=== PATIENT | male | born 1995 | race Caucasian/White ===

== ENCOUNTER 2017-08-05 17:58 | Emergency (ER) | payer MEDICAID, SELFPAY ==
--- NOTE | 2017-08-05 17:58 | DT_ITS ---
This patient was seen during an EMR downtime August 05, 2017 - August 12, 2017. This patient may have a combination of paper and electronic documentation or all paper documentation. All documentation is viewable within the e-chart portion of [employer] for each patient visit.
== END 2017-08-05 19:08 | disposition left against medical advice (07) ==
LOC: ED 08-07 14:31
PROVIDERS: Emergency Provider Emergency Medicine; Family Provider Pediatrics; PCP Pediatrics
DX: Z53.21 Procedure and treatment not carried out due to patient leaving prior to being seen by health care provider (principal)

== ENCOUNTER 2017-11-13 13:01 | Emergency (ER) | payer MEDICAID, SELFPAY ==
[2017-11-13 13:02] VITALS: BP 147/78; PULSE 86; RESP 16; TEMP 36.1; O2SAT 99; BMI 22.6
--- NOTE | 2017-11-13 13:21 | CT_ITS ---
STUDY: CT ABDOMEN AND PELVIS WITHOUT CONTRAST REASON FOR EXAM: Male, 22 years old. Left flank pain RADIATION DOSAGE (If Supplied By Facility): CTDIvol = ( 6.12 ) mGy, DLP = ( 285.76 ) mGycm TECHNIQUE: Transaxial images were obtained from the dome of the diaphragm to the symphysis pubis without oral contrast, and without intravenous contrast. Sagittal and coronal images were reconstructed. Individualized dose optimization techniques were used for this CT. COMPARISON: None. FINDINGS: Body wall soft tissues: No acute process. Osseous structures: No acute process. Inferior chest: No acute process. Hepatobiliary: Normal. Pancreas: No acute process. Spleen: Normal. Adrenal glands: Normal. Urogenital: Punctate nonobstructing calyceal calculus of the left renal superior pole. Series 2 image 35. Normal right kidney, collecting system and ureter. There is very slight ectasia of the left renal pelvis and ureter. There is a 3 mm calculus within the distal left ureter approximately 3 cm proximal to the UVJ. Normal urinary bladder, prostate and seminal vesicles. Pelvic floor and sidewalls and retroperitoneum: No mass or adenopathy. Vasculature: No acute process. Stomach: No acute process. Small bowel and mesentery: No acute process. Large bowel: No acute process. Free fluid or free air: None. CT/Abdomen/Pelvis without Cont IMPRESSION: Acute passage of 3 mm left urinary calculus, calculus within the distal left ureter about 3 cm proximal to the ureterovesical junction. Very minimal hydronephrosis and hydroureter. Electronically Signed: Roel Neri, at 14:07 EDT Tel , Service support ,
--- NOTE | 2017-11-13 13:26 | ED.DCSUM_ITS ---
- ER Visit Summary Date of Service: 11/13/17 Chief Complaint: Right flank pain History of Present Illness: The patient is a 22 M who goes to [facility]. He reports that he has right flank pain that began abruptly approximately 45 minutes ago. Sharp pains 10-10 severity. Is worsened by nothing relieved by nothing. He denies any nausea, vomiting, diarrhea. His last bowel was today. He had no melena or hematochezia. No dysuria frequency. No hematuria. He denies any recent trauma. No fall, MVA, or change in activity. There is no relation to his legs. Physical Examination: Vitals: Stable. Afebrile. General: Well-nourished and well-developed. Head: Normocephalic atraumatic. Neck: Supple, no lymphadenopathy. No JVD. Nontender. Cardiovascular: Regular rate and rhythm. No murmurs. Respiratory: No respiratory distress. Clear to auscultation bilaterally. Abdominal: Soft, nontender, nondistended, normal bowel sounds. No guarding, rebound, or peritoneal signs. Back: Nontender. No CVA tenderness. Extremities: Nontender, no edema. Skin: Normal color, no rash. Neurologic: Alert and oriented ?3. Cranial nerves II through XII are intact. Normal strength and sensation. Psych: Normal affect. Test Results: Urinalysis shows leukocytes, nitrites, 10-25 white blood cells, greater than 100 red blood cells, and rare bacteria. Clinical Impression(s) from Imaging Studies Abdomen/Pelvis CT 11/13/17 13:21 IMPRESSION: Acute passage of 3 mm left urinary calculus, calculus within the distal left ureter about 3 cm proximal to the ureterovesical junction. Very minimal hydronephrosis and hydroureter. Electronically Signed: Roel Halle, at 14:07 EDT Tel , Service support , Emergency Department Course and Treatment: Patient had an IV placed. He was given Toradol, morphine, and Zofran IV. He was given a dose of Rocephin IV. Treatment Plan: Patient will be discharged with Keflex, Zofran, [place], naproxen , and a urine strainer. Instructed to follow-up with Dr. Rader in 1 week if he has not passed the stone. Return to the emergency department for any worsening symptoms. Disposition: To home in improved and stable condition. Impression: 1. Left ureterolithiasis. 2. UTI. This note was generated with [employer] dictation software. It may contain incorrect words, spelling, and punctuation that were not noted in review of the chart prior to signing ED Disposition - Plan for ED Patient: Chief Complaint: Flank Pain Instructions: ED Stone Renal W Colic Prescriptions: Ondansetron [Zofran Odt] 4 mg PO Q8H PRN PRN #10 tablet PRN Reason: Nausea Cephalexin [Keflex] 500 mg PO Q12 #14 capsule Hydrocodone/Acetaminophen [[place] 5-325 Tablet] 1 - 2 each PO 4X/DAY PRN PRN 3 Days #12 tablet PRN Reason: Pain Naproxen [Naprosyn] 500 mg PO BID #14 tablet Referrals: Kaylee Rader MD [STAFF PHYSICIAN] - 1 Week
[2017-11-13] MEDS: Ondansetron 4 MG/2 ML Vial IV (13:40)
[2017-11-13] MEDS: Morphine 4 MG/ML Syringe IV (13:40)
[2017-11-13] MEDS: 0.9% Normal Saline 1,000 ML 250 ML IV (13:40)
[2017-11-13] MEDS: Ketorolac 30 MG/ML Syringe IV (13:40)
[2017-11-13 15:26] LABS: Squamous Epithelial Cells - UA 0 SEEN /hpf (0-5)
[2017-11-13 15:44] LABS: Glucose, Dipstick Normal (Normal); Ketone-Dipstick 5 mg/dl (Negative); Leukocyte Esterase-Dipstick 100 /ul (Negative); Nitrite-Dipstick Positive (Negative); Occult Blood-Urine 250 /ul (Negative); Protein-Dipstick 100 mg/dl (Negative); Specific Gravity, Urine 1.015 (1.002-1.030); Urine Urobilinogen 1 mg/dl (Normal)
[2017-11-13 15:47] LABS: Color, Urine Amber (Yellow); Urine Bilirubin Dipstick 1 mg/dL (Negative); Urine Clarity Cloudy (Clear)
[2017-11-13 16:04] LABS: Red Blood Cells-Urine > 100 SEEN /hpf (0-5); White Blood Cells 10-25 SEEN /hpf (0-5)
[2017-11-13 16:05] LABS: Bacteria RARE /hpf (None Seen); Calcium Oxalate Crystals Ur 1+ /hpf (<or=2+); Mucous, Urine 1+ /hpf (<or=2+)
[2017-11-13] MEDS: Ceftriaxone 1 GM/50 ML BAG IV (16:23)
[2017-11-13 17:09] VITALS: BP 149/103; PULSE 55; RESP 16; O2SAT 100
[2017-11-13 17:11] VITALS: BP 138/87; PULSE 73; RESP 16; O2SAT 99
== END 2017-11-13 17:16 | disposition home or self-care (01) ==
PROVIDERS: Emergency Provider Emergency Medicine; Family Provider Family Medicine; PCP Family Medicine
DX: N20.1 Calculus of ureter (principal); N39.0 Urinary tract infection, site not specified; Z72.0 Tobacco use; Z79.899 Other long term (current) drug therapy
CPT/HCPCS: 74176; 81001; 87086; 87088; 96361; 96365; 96375; 99284; J7030; J7050; A4216; J2405

== ENCOUNTER 2018-03-25 01:39 | Emergency (ER) | payer MEDICAID, SELFPAY ==
[2018-03-25 01:40] VITALS: BP 151/78; PULSE 119; RESP 16; TEMP 36.8; O2SAT 97; BMI 25.2
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
[2018-03-25] MEDS: Diphth,Pertuss(Acell),Tet Vac 0.5 ML Vial IM (02:04)
--- NOTE | 2018-03-25 02:25 | RAD_ITS ---
STUDY: X-RAY - LEFT HAND REASON FOR EXAM: Male, 23 years old. Retained wire TECHNIQUE: 2 view(s) of the hand. COMPARISON: None. FINDINGS: Normal radiocarpal articulation. Normal distal radioulnar joint. Normal visualized carpal bones. Normal carpal articulations Normal carpometacarpal articulation of the thumb. Normal second through fifth carpometacarpal joints. Normal metacarpi. Normal metacarpophalangeal joint of the thumb. Normal interphalangeal joint of the thumb. Normal proximal and distal phalanges of the thumb. Normal metacarpophalangeal joints of the second through fifth fingers. Normal proximal and distal interphalangeal joints of the second through fifth fingers. Normal phalanges of the second through fifth fingers. A curvilinear 4 mm retained metallic foreign body is present in the volar soft tissues of the third digit at the level of the proximal phalanx. Residual soft tissue air is noted between the first and second digits. RAD/Hand 2 Views IMPRESSION: A curvilinear 4 mm retained metallic foreign body is present in the volar soft tissues of the third digit at the level of the proximal phalanx. Electronically Signed: George Daniels MD at 3:19 EST Tel , Service support ,
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
--- NOTE | 2018-03-25 03:00 | ED.DEP ---
ED Disposition - Plan for ED Patient: Chief Complaint: Foreign Body Instructions: ED Foreign Body Soft Tissue Removed Prescriptions: Cephalexin [Keflex] 500 mg PO Q6 #40 cap Referrals: Lino Velasco MD [Primary Care Provider] - Jase Mcgregor MD [STAFF PHYSICIAN] - Additional Instructions: You have a retained piece of wire in the left long/middle finger. This is a risk for possible infection. We have placed on antibiotics to try to prevent this. However if he develop any increased pain redness swelling or any drainage he need to return to the emergency department immediately. It is very important that you follow-up with plastic surgery as soon as possible.
[2018-03-25] MEDS: Cephalexin 250 MG Capsule 500 MG PO (03:08)
[2018-03-25 03:11] VITALS: BP 148/62; PULSE 90; RESP 16; O2SAT 96
== END 2018-03-25 03:14 | disposition home or self-care (01) ==
LOC: ED 02:02
PROVIDERS: Emergency Provider Emergency Medicine; Family Provider Family Medicine; PCP Family Medicine
DX: S61.243A Puncture wound with foreign body of left middle finger without damage to nail, initial encounter (principal); S61.245A Puncture wound with foreign body of left ring finger without damage to nail, initial encounter; M79.5 Residual foreign body in soft tissue; F90.9 Attention-deficit hyperactivity disorder, unspecified type; Z72.0 Tobacco use; Z23 Encounter for immunization; Z79.899 Other long term (current) drug therapy; W45.8XXA Other foreign body or object entering through skin, initial encounter; W29.4XXA Contact with nail gun, initial encounter; Y93.89 Activity, other specified; Y92.89 Other specified places as the place of occurrence of the external cause; Y99.8 Other external cause status
CPT/HCPCS: 73120; 73130; 90471; 90715; 99284

== ENCOUNTER 2018-08-11 00:45 | Emergency (ER) | payer MEDICAID, SELFPAY ==
[2018-08-11 00:46] VITALS: BP 145/86; PULSE 102; RESP 17; TEMP 36.9; O2SAT 96; BMI 24.9
--- NOTE | 2018-08-11 01:13 | ED.VISSUMM ---
- ER Visit Summary Date of Service: 08/11/18 Chief Complaint: Dental pain History of Present Illness: The patient is a 23 M with dental pain for a week. He thinks he may have chipped a tooth. No fever chills cough congestion Physical Examination: There is tenderness over the right upper second molar, there is a fractured tooth and widespread dental decay. There is no periapical abscess or facial swelling Emergency Department Course and Treatment: Patient is given analgesia antibiotics. He has given dental referral Discharge stable condition Impression: [Odontalgia] This note was generated with [employer] dictation software. It may contain incorrect words, spelling, and punctuation that were not noted in review of the chart prior to signing ED Disposition - Plan for ED Patient: Disposition: Home or Assisted Living Instructions: ED Tooth Pain Prescriptions: Naproxen [Naprosyn] 500 mg PO BID PRN #20 tab Penicillin V Potassium 500 mg PO 4X/DAY #40 tab
--- NOTE | 2018-08-11 01:16 | ED.DCSUM_ITS ---
- ER Visit Summary Date of Service: 08/11/18 Chief Complaint: Dental pain History of Present Illness: The patient is a 23 M with dental pain for a week. He thinks he may have chipped a tooth. No fever chills cough congestion Physical Examination: There is tenderness over the right upper second molar, there is a fractured tooth and widespread dental decay. There is no periapical abscess or facial swelling Emergency Department Course and Treatment: Patient is given analgesia antibiotics. He has given dental referral Discharge stable condition Impression: [Odontalgia] This note was generated with [employer] dictation software. It may contain incorrect words, spelling, and punctuation that were not noted in review of the chart prior to signing ED Disposition - Plan for ED Patient: Disposition: Home or Assisted Living Instructions: ED Tooth Pain Prescriptions: Naproxen [Naprosyn] 500 mg PO BID PRN #20 tab Penicillin V Potassium 500 mg PO 4X/DAY #40 tab
[2018-08-11] MEDS: Penicillin Vk 250 MG Tablet 500 MG PO (01:21)
[2018-08-11] MEDS: HYDROcodone Bitartrate/Apap 5/325 Tablet PO (01:21)
[2018-08-11 01:23] VITALS: BP 134/68; PULSE 100; RESP 17; O2SAT 95
== END 2018-08-11 01:25 | disposition home or self-care (01) ==
PROVIDERS: Emergency Provider Emergency Medicine; Family Provider Family Medicine; PCP Family Medicine
DX: K08.89 Other specified disorders of teeth and supporting structures (principal)
CPT/HCPCS: 99283

== ENCOUNTER → 2019-08-07 14:57 | Outpatient (CLI) | payer MEDICAID, SELFPAY ==
[2019-08-07 20:11] LABS: Chlamydia Trachomatis by PCR Negative (Negative); Neisserai gonorrhoeae by PCR Negative (Negative); Probe Check PASS; Sample Adequacy Control PASS; Specimen Processing Control PASS
[2019-08-10 09:46] LABS: HIV - WCH Non-Reactive (Nonreactive); Hepatitis B Surface Antigen Non-Reactive (Nonreactive)
[2019-08-13 01:57] LABS: Rapid Plasmin Reagin (RPR) NONREACTIVE (NONREACTIVE)
== END ==
PROVIDERS: PCP Family Medicine; Visit Provider Family Medicine
DX: Z20.9 Contact with and (suspected) exposure to unspecified communicable disease (principal)
CPT/HCPCS: 36415; 86592; 86703; 87340; 87491; 87591

== ENCOUNTER 2020-12-11 03:43 | Emergency (ER) | payer MEDICAID, SELFPAY ==
[2020-12-11 03:44] VITALS: BP 142/97; PULSE 111; RESP 25; TEMP 36.6; BMI 22.8
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
--- NOTE | 2020-12-11 03:48 | RAD_ITS ---
EXAM: XR PELVIS, 1 OR 2 VIEWS CLINICAL INDICATION: trauma trauma TECHNIQUE: Frontal view of the pelvis. This report was created using [employer] report generation technology. COMPARISON: CT scan abdomen and pelvis 11/13/2017. FINDINGS: BONES/JOINTS: There is questionably minimally impacted nondisplaced right subcapital femoral neck fracture versus artifact of projection. No other evidence for fracture or dislocation. No destructive or sclerotic lesions. Note that overlapping bowel shadows may however obscure fine detail. Sacroiliac joints are unremarkable. No widening of the pubic symphisis. The articular structures are unremarkable. SOFT TISSUES: Unremarkable. No soft tissue swelling or gas. RAD/Pelvis 1 or 2 Views IMPRESSION: Question of right subcapital femoral neck fracture versus artifact of projection. If symptoms warrant, additional views of the right hip would be advised. Electronically Signed: Waqar Iqbal MD at 5:16 EDT , Service support ,
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
--- NOTE | 2020-12-11 03:50 | EKG12_ITS ---
Test Reason : DYSRYTHMIA Blood Pressure : / mmHG Vent. Rate : 109 BPM Atrial Rate : 109 BPM P-R Int : 124 ms QRS Dur : 084 ms QT Int : 318 ms P-R-T Axes : 068 083 057 degrees QTc Int : 428 ms Sinus tachycardia Otherwise normal ECG Confirmed by SOPHIE MALDONADO, ANNA ([id number]), assistant editor REBECCA PAGAN ([id number]) on 12/13/2020 9:32:00 AM Referred By: DESIREE Confirmed By:ANNA BARRIOS MD
--- NOTE | 2020-12-11 03:51 | CT_ITS ---
EXAM: CT HEAD WITHOUT INTRAVENOUS CONTRAST CLINICAL INDICATION: Trauma Trauma TECHNIQUE: Multiple axial images were obtained of the head without intravenous contrast. This CT exam was performed using one or more of the following dose reduction techniques: automated exposure control, adjustment of the mA and/or kV according to patient size, and/or use of iterative reconstruction technique. This report was created using [employer] report generation technology. COMPARISON: 11/07/2014. CT scan cervical spine and chest x-ray done today. FINDINGS: BRAIN AND EXTRA-AXIAL SPACES: Unremarkable. No intra- or extra-axial hemorrhage. No evidence of acute infarct. No intracranial mass or mass effect. There is preservation of the oliva/white matter interface. Posterior fossa structures are unremarkable. Ventricles are appropriate for age. No hydrocephalus. Basal cisterns are patent. BONES/JOINTS: Unremarkable. No discrete lytic or blastic abnormalities. SOFT TISSUES: There is soft tissue emphysema in the neck neck and right submandibular region, which represents upward extension of air from the chest. SINUSES: There are polyps or retention cysts in the maxillary sinuses along with mild mucoperiosteal thickening, consistent with chronic disease. MASTOID AIR CELLS: Unremarkable. Clear. ORBITS: Visualized globes, extraocular muscles, optic nerves and retrobulbar fat appear unremarkable. CT/Brain/Head without Contrast IMPRESSION: No acute findings in the head/brain. Electronically Signed: Waqar Iqbal MD at 5:28 EDT , Service support ,
--- NOTE | 2020-12-11 03:52 | CT_ITS ---
EXAM: CT CERVICAL SPINE WITHOUT INTRAVENOUS CONTRAST CLINICAL INDICATION: trauma trauma TECHNIQUE: Helically acquired images were obtained of the cervical spine without intravenous contrast. 2D reformatted images were reviewed. This CT exam was performed using one or more of the following dose reduction techniques: automated exposure control, adjustment of the mA and/or kV according to patient size, and/or use of iterative reconstruction technique. This report was created using [employer] report generation technology. COMPARISON: Chest x-ray 12/11/2020. FINDINGS: VERTEBRAE: Unremarkable. No fracture. No traumatic subluxation. No discrete lytic or blastic abnormality. Normal alignment. Normal craniocervical junction and cervicothoracic junction. DISCS/SPINAL CANAL/NEURAL FORAMINA: C3-4: Broad posterior disc protrusion. Mild spinal stenosis with central canal AP diameter of 9 mm. C4-5: Small broad posterior disc protrusion. No associated spinal stenosis. C5-6: Small broad posterior disc protrusion. No associated spinal stenosis. OTHER BONES/JOINTS: There or acute traumatic fractures of the visualized right first, third, and fourth ribs.. Additional rib fractures were visualized on x-ray of the chest. SOFT TISSUES: There is soft tissue emphysema in the right anterior and posterior soft tissues of the neck as well as in the prevertebral space, crossing the midline. There is soft tissue emphysema in the visualized mediastinum. LYMPH NODES: Unremarkable. No cervical adenopathy. LUNG APICES: Unremarkable as visualized. Clear. TUBES, LINES AND DEVICES: There is a chest tube with its tip in the medial right upper lung field. The visualized portion of the tube appear to be within the right side of the mediastinum rather than in the right pleural space. CT/Spine Cervical without Contras IMPRESSION: 1. Right rib fractures. 2. Soft tissue emphysema in the neck and visualized upper mediastinum. 3. Chest tube tip may be within the right side of the mediastinum rather than in the pleural space. A CT scan of the chest might be used to more reliably delineated the course of the tube and confirmed extrapleural location. 4. Mild multilevel degenerative changes. 5. No demonstrated fracture or subluxation of the cervical spine. Electronically Signed: Waqar Iqbal MD at 5:39 EDT , Service support ,
[2020-12-11 03:53] VITALS: PULSE 98; RESP 30; O2SAT 93
[2020-12-11] MEDS: 0.9% Normal Saline 1,000 ML 999 ML IV (03:57)
[2020-12-11] MEDS: fentaNYL 100 MCG/2 ML Ampul IV (03:59)
[2020-12-11] MEDS: Ondansetron 4 MG/2 ML Vial IV (03:59)
[2020-12-11 04:16] LABS: Absolute Lymphocyte Count 2.54 X10^3/uL (0.83-4.51); Absolute Neutrophil Count 6.8 X10^3/uL (2.0-7.7); Basophil# 0.05 X10^3/uL; Basophil% 0.5 % (0-1); Eosinophil# 0.08 X10^3/uL; Eosinophils% 0.8 % (0-5); Hematocrit 45.9 % (40-54); Hemoglobin 15.5 g/dL (13.0-16.5); Lymphocyte # 2.54 X10^3/ul (0.83-4.51); Lymphocyte % 24.3 % (19-41); Mean Corp Hgb Conc 33.8 g/dL (32-36); Mean Corpuscular Hgb 31.8 pg (27.0-32.0); Mean Corpuscular Volume 94.1 fL (80-94); Mean Platelet Vol. 9.5 fl (6.2-12.0); Monocyte# 0.85 X10^3/uL; Monocyte% 8.1 % (0-10); NRBC Flagged by Analyzer 0 % (0-5); Neutrophil # 6.79 X10^3/uL (2.7-7.7); Neutrophil % 64.8 % (47-70); Platelet Count 352 K/mm3 (150-450); Red Blood Count 4.88 M/mm3 (4.6-6.2); White Blood Count 10.5 K/mm3 (4.4-11.0)
[2020-12-11] MEDS: Lidocaine 1% /Epi 1:100 (20ml) 20 ML Vial INFILT (04:16)
--- NOTE | 2020-12-11 04:28 | RAD_ITS ---
EXAM: XR CHEST, 1 VIEW CLINICAL INDICATION: post chest tube post chest tube TECHNIQUE: Frontal view of the chest. This report was created using [employer] report generation technology. COMPARISON: 12/09/2020, done at 0346 hours. FINDINGS: LUNGS AND PLEURAL SPACES: There is no visualized pneumothorax. There is increased density throughout the right lung field which may represent pulmonary infiltrate, pulmonary contusion, or layering out of a right pleural effusion. HEART: Unremarkable. Cardiac silhouette not enlarged. MEDIASTINUM: Central airways and mediastinal contour are unremarkable. BONES/JOINTS: There are multiple acute right rib fractures. SOFT TISSUES: See above. TUBES, LINES AND DEVICES: There is a chest tube with its tip overlying the medial right lung apex. There is soft tissue emphysema in the right chest wall and visualized right lower neck. RAD/Chest 1 View (Portable) IMPRESSION: 1. Chest tube with tip overlying the medial right apical region. 2. Soft tissue emphysema in the right chest wall and right side of the neck. 3. Diffuse right pulmonary infiltration, pulmonary contusion, and/or layering out of pleural fluid. 4. Multiple acute right rib fractures. Electronically Signed: Waqar Iqbal MD at 5:09 EDT , Service support ,
[2020-12-11 04:29] LABS: International Normalized Ratio 1.1; Partial Thromboplast Time 26.1 Seconds (24.1-36.2); Prothrombin Time (Protime)PT. 13.9 SECONDS (11.7-14.9)
[2020-12-11 04:34] LABS: AST(SGOT) 88 U/L (15-37); Alanine Aminotransfer ALT/SGPT 73 U/L (16-61); Albumin, Serum 3.8 g/dL (3.2-5.0); Alkaline Phosphatase 60 U/L (45-117); Anion Gap 7 (5-15); BUN 16 mg/dL (7-18); BUN/Creat Ratio 12.7 RATIO (10-20); Bilirubin, Direct 0.09 mg/dL (0.00-0.30); Calcium,Total 8.7 mg/dL (8.5-10.1); Chloride 105 mmol/L (98-107); Creatinine, Serum 1.26 mg/dL (0.70-1.30); EST Glomerular Filtration Rate 74 mL/min (>60); Est Glom Filt Rate - Afr Amer 89 mL/min (>60); Estimated Creatinine Clearance 86.25 ml/min; Globulin 3.1 g/dL (2.2-4.2); Glucose 175 mg/dL (74-106); Potassium 3.3 mmol/L (3.5-5.1); Protein, Total 6.9 g/dL (6.4-8.2); Sodium Level 140 mmol/L (136-145)
[2020-12-11 04:39] LABS: Alcohol, Blood (Medical)-Serum < 3.0 mg/dL
[2020-12-11 04:46] VITALS: BP 156/96; PULSE 106; RESP 20; O2SAT 94
[2020-12-11] MEDS: fentaNYL 100 MCG/2 ML Ampul 50 MCG IV (04:48)
== END 2020-12-11 05:11 | disposition short-term general hospital (02) ==
PROVIDERS: Emergency Provider Emergency Medicine; PCP Family Medicine
DX: S27.0XXA Traumatic pneumothorax, initial encounter (principal); S22.41XA Multiple fractures of ribs, right side, initial encounter for closed fracture; J94.2 Hemothorax; F15.10 Other stimulant abuse, uncomplicated; F17.200 Nicotine dependence, unspecified, uncomplicated; V86.55XA Driver of 3- or 4- wheeled all-terrain vehicle (ATV) injured in nontraffic accident, initial encounter
CPT/HCPCS: 32551; 70450; 71045; 72125; 72170; 80048; 80076; 82077; 85025; 85610; 85730; 87426; 93005; 96374; 96375; 96376; 99285; J7030; A4216; J2405

== ENCOUNTER 2021-01-07 23:32 | Emergency (ER) | payer MEDICAID, SELFPAY ==
[2021-01-07 23:33] VITALS: BP 147/91; PULSE 103; RESP 18; TEMP 37.2; O2SAT 97; BMI 31.1
[2021-01-07 23:36] VITALS: BP 147/91; PULSE 103; RESP 18; TEMP 37.2; O2SAT 97
--- NOTE | 2021-01-07 23:41 | ED.VIS.DENTA ---
HPI History of Present Illness Chief Complaint: Dental Detail of Chief Complaint: Dental pain, facial swelling Informant: patient Onset/Context/Timing Onset: Today (Facial swelling started today.) and Days (He is complained of dental pain for the past couple of days.) Context: Sudden Onset Timing: Continuous Quality: Pain Location: Multiple teeth Current Severity: Mild Maximum Severity: Severe Relieved by: NSAIDs Associated Symptoms Assocated Symptom - Dental: jaw swelling, face swelling and cold sensitivity; Negative for fever Narrative Narrative: Patient presents because of dental pain. He is a smoker. Denies drug use. He denies alcohol use. He denies fever, chills night sweats. He denies history of medic fever, heart murmur, SBE or being immune suppressed. He denies inability to open or close his mouth. Nuys change in voice. Prior similar symptoms: Yes Recent Illness/Hospitalization: No PFSH PFSH Home Medications dextroamphetamine-amphetamine [Adderall Xr 20 mg Capsule] 20 mg PO DAILY 03/15/13 [History Last Taken 11/13/17] dextroamphetamine-amphetamine 15 mg PO QHS 11/13/17 [History Last Taken 11/12/17] hydrocodone-acetaminophen 1 tab PO Q6H PRN PRN 3 Days #10 tablet 01/07/21 [Rx Last Taken Unknown] naproxen 500 mg PO BID #14 tab 01/07/21 [Rx Last Taken Unknown] penicillin V potassium 500 mg PO 4X/DAY #40 tab 01/07/21 [Rx Last Taken Unknown] Allergy/AdvReac Type Severity Reaction Status Date / Time venom-honey bee Allergy Unknown Verified 12/11/20 03:49 [bee venom (honey bee)] Social History (Updated 01/07/21 @ 23:[address] Dashawn Rose MD) household members: none Smoking Status: Smoker, status unknown tobacco type: cigarettes alcohol intake: never substance use type: does not use ROS ROS ED Constitutional Constitutional ED: Denies chills, fever(s), subjective, sweats or weight loss Eyes Eyes: Denies blurry vision or change in vision ENT ENT ED: Denies ear pain, rhinorrhea or sore throat Cardiovascular Cardiovascular: Denies chest pain, palpitations or racing heartbeat Respiratory/Chest Respiratory/Chest: Denies cough, dyspnea, dyspnea on exertion or sputum Gastrointestinal Gastrointestinal: Denies abdominal pain, nausea or vomiting Integumentary Reports abscess; Denies Abrasions or rash Allergic/Immunologic Allergic/Immunologic ED: Reports mouth swelling; Denies tongue swelling or urticaria EXAM Physical Exam Const Vital Signs: 01/07/21 23:33 01/07/21 23:36 Temperature 99 F 99 F Temperature Source Temporal Temporal Pulse Rate 103 H 103 H Respiratory Rate 18 18 Blood Pressure 147/91 H 147/91 H Blood Pressure Mean 109 109 Pulse Ox 97 97 Oxygen Delivery Method Room Air Room Air Positive well nourished, well developed and unkempt General Appearance ED: unkempt and well developed; Negative for NAD HEENT Reports TM's clear HEENT Narrative: There is no evidence of Ludewig's angina. There is no trismus. tenderness Face and Sinus: sinuses nontender Tympanic Membrane ED: Yes TM's clear Mouth ED: Yes oral and palatal mucosa normal, Yes lips normal, Yes tongue normal and Yes salivary gland normal Mouth: oral and palatal mucosa normal, lips normal, tongue normal and salivary gland normal Teeth and Gingiva: abnormal tooth and associated gingiva, caries, gingiva abnormal, poor dentition and teeth discoloration Throat: posterior oropharynx normal Eyes PERRL and EOMs intact bilaterally General Eye ED: Negative for pale conjunctiva or scleral icterus Neck no lymphadenopathy, supple and no JVD General: normal visual inspection Lymph Lymphatic: no lymphadenopathy noted Chest Wall inspection of chest normal and palpation of chest normal Resp normal respiratory effort and clear to auscultation bilaterally Cardio regular rate, regular rhythm, S1 normal heart sound, S2 normal heart sound and no murmurs Neuro oriented x3 and CN's II-XII intact bilaterally Sensorium / Orientation: alert Psych mental status grossly normal Appearance: unkempt Skin no rashes or lesions noted and no wounds MDM MDM MDM Narrative Medical decision making narrative: Patient has numerous dental caries involving the enamel, dentin and pulp. There is also evidence of periodontal abscess of his lower incisors with swelling over the mental region. There is no evidence of facial cellulitis. There is no evidence of Ludewig's angina. Trachea is midline without stridor. Plan NSAID, opiate analgesia and antibiotics. He was given a list of dentists. Discharge Plan Triage Chief Complaint: Dental ED Provider: Dashawn Rose Dx/Rx/DC Orders Clinical Impression: Abscess, dental, Dental caries extending into pulp, Dental caries extending into dentin, Acute gingivitis, Gingival and periodontal disease Instructions: Dental Abscess, ED Dental Cavity Prescriptions: New hydrocodone-acetaminophen [hydrocodone-acetaminophen] 1 TABLET tablet 1 tab PO Q6H PRN PRN (Reason: Pain) 3 Days Qty: 10 RF: 0 penicillin V potassium 500 MG tablet 500 mg PO 4X/DAY Qty: 40 RF: 0 naproxen 500 MG tablet 500 mg PO BID Qty: 14 RF: 0 No Action dextroamphetamine-amphetamine [Adderall XR] 20 MG capsule,extended release 24hr 20 mg PO DAILY RF: 0 dextroamphetamine-amphetamine 15 MG capsule,extended release 24hr 15 mg PO QHS RF: 0 Primary Care Provider: Vonnie Rosenthal Referrals: Vonnie Rosenthal MD [Primary Care Provider] -
[2021-01-07] MEDS: HYDROcodone Bitartrate/Apap 5/325 Tablet PO (23:55)
[2021-01-07] MEDS: Naproxen 250 MG Tablet 500 MG PO (23:56)
[2021-01-07] MEDS: Penicillin Vk 250 MG Tablet 500 MG PO (23:56)
[2021-01-07 23:57] VITALS: PULSE 100; RESP 17; O2SAT 95
== END 2021-01-08 00:09 | disposition home or self-care (01) ==
LOC: ED 01-08 00:01
PROVIDERS: Emergency Provider Emergency Medicine; PCP Family Medicine
DX: K04.7 Periapical abscess without sinus (principal); K02.9 Dental caries, unspecified; K05.00 Acute gingivitis, plaque induced; F17.210 Nicotine dependence, cigarettes, uncomplicated; Z79.899 Other long term (current) drug therapy
CPT/HCPCS: 99285

== ENCOUNTER → 2023-11-13 | Outpatient (CLI) | payer MEDICAID, SELFPAY ==
--- NOTE | 2023-11-13 12:26 | NEURO ---
NCS and/or EMG Patient Report Ordering Doctor: Anjelica Arreola DATE OF SERVICE: 11/13/23 Fei with complaints of numbness and tingling in the right hand. Electrodiagnostic findings: Right median motor nerve demonstrates prolonged latency with reduced amplitude and reduced conduction velocity. Right ulnar motor nerve demonstrates normal distal latency, amplitude and conduction velocity across the elbow. Prolonged right median sensory latency at the wrist. Normal right median ulnar F?waves. Needle EMG testing was performed in the right upper limb. All muscles tested showed no evidence of denervation with normal motor unit action potentials. Electrodiagnostic impression: This is an abnormal study of the right upper limb 1. Electrodiagnostic findings suggestive of right-sided median mononeuropathy. This is consistent with a mild to moderate right carpal tunnel syndrome. Multi Select Codes Neurology Neurology Interp Codes: 26463-73 Musc test done w/n test comp (interp) and 52140-99 Nrv cndj tst 5-6 studies (interp)
== END | disposition home or self-care (01) ==
LOC: PSN 09:44
PROVIDERS: PCP Family Medicine; Referring Provider Nurse Practitioner Family; Visit Provider Nurse Practitioner Family
DX: R20.0 Anesthesia of skin (principal)
CPT/HCPCS: 95886; 95909